=== PATIENT | male | born 1995 | race Caucasian/White ===

== ENCOUNTER 2018-02-15 00:39 | Emergency (ER) | payer SELFPAY ==
[~2018-02-15] VITALS: Ht 167.6 cm; Wt 73.1 kg
[2018-02-15 00:52] VITALS: BP 146/96
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
--- NOTE | 2018-02-15 01:08 | NUR ---
Arline giraldo in [facility] - 02/15/18 at 0114 by [email or web address] MD WITH PT
--- NOTE | 2018-02-15 01:08 | NUR ---
WAS WITH PT
[2018-02-15] MEDS ORDERED: MORPHINE SULFATE 4 MG/ML SYR IM ONE (01:10)
[2018-02-15] MEDS ORDERED: ONDANSETRON 4 MG ODT PO ONE (01:10)
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
--- NOTE | 2018-02-15 01:27 | NUR ---
CT CAME FOR PT
--- NOTE | 2018-02-15 01:50 | NUR ---
PT BACK FROM CT. PT IS RESTING
--- NOTE | 2018-02-15 02:38 | NUR ---
WAS AT PT BEDSIDE
[2018-02-15 03:03] VITALS: BP 143/82
--- NOTE | 2018-02-15 03:06 | NUR ---
Patient discharged with v/s stable. Written and verbal after care instructions given and explained. a cd of ct scan was given to pt. Patient alert, oriented and verbalized understanding of instructions. Ambulatory with steady gait. All questions addressed prior to discharge. ID band removed. Patient advised to follow up with PMD. Rx of zofran, motrin and norco was given. Patient educated on indication of medication including possible reaction and side effects. Opportunity to ask questions provided and answered.
--- NOTE | 2018-02-15 03:11 | NUR ---
cd of ct scan was given to pt upon d/c
== END 2018-02-15 03:03 | disposition home or self-care (01) ==
LOC: MED 00:39
DX: S02.82XA Fracture of other specified skull and facial bones, left side, initial encounter for closed fracture (principal); F17.210 Nicotine dependence, cigarettes, uncomplicated; Y04.2XXA Assault by strike against or bumped into by another person, initial encounter; Y93.89 Activity, other specified; Y92.89 Other specified places as the place of occurrence of the external cause; Y99.8 Other external cause status
CPT/HCPCS: 70450; 70486; 72125; 96372; 99284; J2270; S0119

== ENCOUNTER 2020-11-29 15:58 | Emergency (ER) | payer OTHER ==
[~2020-11-29] VITALS: Ht 167.6 cm; Wt 65.8 kg
[2020-11-29 16:08] VITALS: BP 140/91
--- NOTE | 2020-11-29 16:15 | NUR ---
Dr. Whitaker at bedside assessing patient.
[2020-11-29] MEDS ORDERED: NAPR-54 PO (16:55)
[2020-11-29] MEDS ORDERED: AMOX-999 PO (16:55)
[2020-11-29 17:18] VITALS: BP 140/91
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
== END 2020-11-29 17:19 | disposition home or self-care (01) ==
LOC: MED 15:58
DX: T16.2XXA Foreign body in left ear, initial encounter (principal); Z79.899 Other long term (current) drug therapy; W22.8XXA Striking against or struck by other objects, initial encounter; Y93.89 Activity, other specified; Y92.89 Other specified places as the place of occurrence of the external cause; Y99.8 Other external cause status
CPT/HCPCS: 69200; 99284

== ENCOUNTER 2024-02-07 21:36 | Emergency (ER) | payer MEDICAID, OTHER ==
[~2024-02-07] VITALS: Ht 167.6 cm; Wt 77.1 kg
[~2024-02-07 21:36] MED LIST: AMOX-999 PO; NAPR-337 PO
[2024-02-07 21:50] VITALS: BP 146/98; PULSE 82; RESP 16; TEMP 97.7; O2SAT 98
[2024-02-07] MEDS ORDERED: CEPH-588 PO (22:19)
[2024-02-07 22:22] VITALS: BP 137/94; PULSE 83; RESP 18; TEMP 98.5; O2SAT 100
== END 2024-02-07 22:22 | disposition home or self-care (01) ==
LOC: MED 21:36
DX: T24.202A Burn of second degree of unspecified site of left lower limb, except ankle and foot, initial encounter (principal); T31.0 Burns involving less than 10% of body surface; L03.116 Cellulitis of left lower limb; Z79.899 Other long term (current) drug therapy; X08.8XXA Exposure to other specified smoke, fire and flames, initial encounter; Y93.89 Activity, other specified; Y92.89 Other specified places as the place of occurrence of the external cause; Y99.8 Other external cause status
CPT/HCPCS: 99283